=== PATIENT | female | born 1945 | race Caucasian/White ===

== ENCOUNTER 2016-09-15 15:48 | Emergency (ER) | payer MEDICARE, OTHER ==
[2016-09-15 18:23] LABS: BASO % 0.6 % (0.2-1.0); EOS % 0.6 % (0.9-2.9); HEMATOCRIT 39.8 % (37.0-47.0); HEMOGLOBIN 13.4 gm/l (12.0-16.0); IMM NEUT% 0.4 % (0-1); LYMPH # 0.8 (1.0-4.8); LYMPH % 11.5 % (15-45); MEAN CELL VOLUME 94.1 fl (81.0-99.0); MEAN CORPUSCULAR HEMOGLOBIN 31.7 pg (27.0-31.0); MEAN CORPUSCULAR HGB CONC 33.7 g/dl (33.0-37.0); MEAN PLATELET VOLUME 10.3 fl (7.4-10.4); MONO # 0.2 (0.0-0.8); MONO % 2.1 % (4-12); NEUT % 84.8 % (43-75); PLATELET COUNT 205 K/mm3 (130-400); RED CELL DISTRIBUTION WIDTH 13.9 % (11.5-14.5)
[2016-09-15] MEDS ORDERED: ASPIRIN CHEWTAB 81 MG TABLET ONE (18:33)
[2016-09-15 18:48] LABS: CALCIUM 9.3 mg/dL (8.6-10.3)
[2016-09-15] MEDS ORDERED: NITROGLYCERIN OINT 1 G (DOSE) ONE (20:06)
[2016-09-15] MEDS ORDERED: ENOXAPARIN SODIUM 100 MG/ML SYRINGE SUB-Q ONE (20:10)
[2016-09-15 21:34] LABS: URINE BILIRUBIN NEGATIVE (NEGATIVE); URINE BLOOD NEGATIVE (NEGATIVE); URINE GLUCOSE (UA) NEGATIVE (NEGATIVE); URINE LEUKOCYTE ESTERASE 2+ (NEGATIVE); URINE NITRITE POSITIVE (NEGATIVE); URINE PROTEIN TRACE (NEGATIVE)
[2016-09-15 21:40] LABS: URINE APPEARANCE SL CLOUDY; URINE COLOR DARK YELLOW; URINE UROBILINOGEN 4 mg/dL (0-1 mg/dl)
[2016-09-15 21:53] LABS: URINE RBC 0-2 /hpf
[2016-09-15 21:54] LABS: URINE BACTERIA 4+
[2016-09-15] MEDS ORDERED: CIPROFLOXACIN 500 MG TABLET ONE (22:50)
[2016-09-15] MEDS ORDERED: POTASSIUM CHLORIDE 10 MEQ TAB.SR PO ONE (23:22)
[2016-09-15] MEDS ORDERED: NYSTATIN TOPICAL POWDER 100 MU/G 5 APPLIC/15 G BOT TP ONE (23:44)
[2016-09-15] MEDS ORDERED: GABAPENTIN 300 MG CAPSULE ONE (23:50)
== END 2016-09-16 00:20 | disposition short-term general hospital (02) ==
LOC: ED 15:48
DX: I20.0 Unstable angina (principal); M54.2 Cervicalgia; E03.9 Hypothyroidism, unspecified; L12.0 Bullous pemphigoid; G35 Multiple sclerosis
CPT/HCPCS: 85025; 87086; 80048; 84484; 81001; 99285 ×2; 96372; 93005 ×2; A9270 ×6; J1650